=== PATIENT | male | born 1990 | race Two or more races ===

== ENCOUNTER 2020-05-26 15:54 | Emergency (ER) | payer OTHER ==
[~2020-05-26] VITALS: Ht 167.6 cm; Wt 83.9 kg
[2020-05-26 16:05] VITALS: BP 129/82
--- NOTE | 2020-05-26 17:10 | NUR ---
Patient discharged to home in stable condition. Written and verbal after care instructions given. Patient verbalizes understanding of instruction. Pt ambulatory with a steady gait
== END 2020-05-26 17:23 | disposition home or self-care (01) ==
LOC: ER 15:58 → EDBD 15:58 → ER 17:23
DX: T23.101A Burn of first degree of right hand, unspecified site, initial encounter (principal); X08.8XXA Exposure to other specified smoke, fire and flames, initial encounter; Y93.89 Activity, other specified; Y92.89 Other specified places as the place of occurrence of the external cause; Y99.8 Other external cause status
CPT/HCPCS: 73130; 99283; A6403